=== PATIENT | female | born 1955 | race Caucasian/White ===

== ENCOUNTER 2019-10-01 09:08 | Day surgery (SDC) | payer OTHER, SELFPAY ==
[2019-09-30 14:18] VITALS: BMI 38.3
[2019-10-01] VITALS (15 sets, daily range): BP systolic 124–145; BP diastolic 59–75; PULSE 53–74; RESP 12–17; TEMP 36.3–37.1; O2SAT 92–98; BMI 38.3
--- NOTE | 2019-10-01 09:53 | SUR.PREOP ---
Placed pillow under LLE for comfort.
--- NOTE | 2019-10-01 10:53 | PM.PREOP ---
Pre-operative Note Interval Note History & Physical reviewed/Exam performed by Physician: Yes Changes to H&P: No
[2019-10-01] MEDS: ACETAMINOPHEN 325 MG TABLET 975 MG PO (10:56)
[2019-10-01] MEDS: GABAPENTIN 100 MG CAPSULE 200 MG PO (10:57)
[2019-10-01] MEDS: CEFAZOLIN 2 GM/100 ML FROZ.PIGGY IV (11:35)
--- NOTE | 2019-10-01 12:10 | SUR.OPER ---
Supine on padded OR bed, head on pillow, arms secured on padded arm boards at <90 degrees abduction, bump under left hip, left leg is under control of surgeon, safety belt at hips, tape over blanket over right lower leg.
[2019-10-01] MEDS: BUPIVACAINE 0.25% W/ EPI 30 ML VIAL INJ (12:22)
--- NOTE | 2019-10-01 13:39 | P.OP_ITS ---
Operative Date/Time/Diagnoses Date of procedure: 10/01/19 Time of procedure: 12:00 Pre-op diagnosis: Closed displaced fracture lateral malleolus left fibula [id number] Morbid obesity BMI 38.4 Obstructive sleep apnea Diabetes controlled on oral medications Post-op diagnosis: other (Closed displaced fracture lateral malleolus left fibula, disruption syndesmosis left ankle) Procedure & Clinicians Procedure: 1. Open reduction internal fixation left fibula CPT code 95961 2. ORIF left syndesmosis CPT code 28983 Same procedure as scheduled: Yes Indications: The patient is a 64-year-old female that fell walking her dog down a slippery slope 5 days prior. Patient sustained a displaced left closed ankle fracture. She was seen at [facility] and splinted. She was referred for orthopedic care. 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 She has a diagnosis of diabetes but last hemoglobin A1c was 6.5 and she is controlled on oral medications. She underwent bridging of her warfarin to Lovenox by her primary care. She was indicated for open reduction internal fixation of her unstable left ankle fracture with medial clear space widening. The risks benefits and alternatives to the surgical procedure including but not limited to infection, nonunion, malunion, posttraumatic arthritis, persistent pain, damage to nerves and vessels, bleeding, DVT, PE, amputation, need for additional procedures, painful hardware, stroke, paralysis, were discussed. Informed consent was signed. Plan would be bridge with Lovenox and patient will resume warfarin postoperatively Surgeon: Aneta Dee Click Yes if Unassisted: Yes Anesthesia Type: General, Peripheral nerve block and Local Operative Notes Findings: Displaced long oblique distal fibula fracture with separate wagstaffefracture fragment anteriorly and disruption of the syndesmosis. Fibula fracture was cleaned and reduced with a clamp and a anterior to posterior lag screw was placed followed by an anterior posterior lag screw through the posterior lateral plate. This reduced the large of fibula fracture. A 7 hole Arthrex 1/3 tubular plate was used with cortical screws proximally and 2 locking screws distally to decrease the profile. The syndesmosis was stressed and unstable therefore the thumb pressure and periarticular clamp were placed reducing the mortise and a tetra cortical 3.5 screw was placed for syndesmotic fixation. Additionally the small wagstaffe anterior fragment was fixed with 2 O Vicryl suture utilizing bone tunnels as this fragment was too small and thin to support screw fixation. After fixation these syndesmosis was stressed under fluoroscopic imaging and was stable. Closure Type: primary Specimen(s): none sent Prosthetic devices, grafts, tissues, transplants, or devices: Arthrex 7 hole 1/3 tubular plate and screws. 3.5 cortical screws proximally and for syndesmotic fixation. 2 x3.5 locking screws distally to reduce prominence at the lateral malleolus Applied: implant(s) (Arthrex see above) Estimated Blood Loss (mL): 10 Blood products transfused: none Tourniquet time (min): 60 Procedure in detail: In the preoperative holding area, the appropriate limb and sites were marked, consent was again reviewed with the patient and all questions answered. The patient was brought to the operating room, placed on the operating table and given anesthetic. Following successful levels of anesthesia, the patient was appropriately padded, position secured to the table. An SCD was placed on the contralateral leg. All bony prominences were well padded. A well- padded thigh tourniquet was placed. The surgical leg was then prepped and draped in the usual sterile fashion. A formal time-out procedure was completed confirming the patient, site and side of surgery and administration of appropriate preoperative antibiotics. All were in agreement. The patient received a postoperative regional block by the anesthesia team for postoperative pain control. An Esmarch bandage was utilized to exsanguinate the limb and the tourniquet was raised on the thigh to 250 mmHg-this remained elevated for 60 minutes and was let down during closing. Lateral incision was made over the posterior border of the fibula. Dissection was carried through the skin and subcutaneous tissue to the level of the fibula. The fracture was exposed and cleaned of debris. Fracture was a long oblique fracture through the syndesmosis which was disturbed. There is a small wagstaffe fracture as well. The tibiotalar joint was visualized and irrigated. No obvious osteochondral defect was visualized. Fracture was reduced, restoring length rotation and anatomic alignment. This was stabilized with 3.5 lag screw. Next a 1/3 tubular locking neutralization plate was placed and secured in standard fashion. Appropriate implant positioning was confirmed on intraoperative fluoro. Ankle was stressed under fluoroscopic imaging an external rotation and fibular manipulation. The syndesmosis was felt to be unstable. Syndesmosis stabilization: The syndesmosis was grossly disturbed based on visualization was further demonstrated on stress testing. Therefore the syndesmosis was formally opened and reduced and then stabilized with 1 tetra cortical 3.5 mm syndesmotic screws. This was restore S2 under live fluoroscopy with external rotation and the mortise was stable. Next attention was turned to fixing the Weck staff fragment. Due to the thin nature of this fracture fragment drill holes were made through the fibula using a K-wire and 2 O Vicryl suture was used for suture repaired tied over the lag staph fragment reapproximating the distal part of the syndesmosis. Stability was confirmed under fluoro. The wounds were irrigated. We were quite satisfied with result clinically and radiographically. The tourniquet was released, and hemostasis achieved. The deep tissue was closed with 2 O Vicryl. Subcutaneous tissue was closed with 2 O Vicryl and skin with 3 O nylon. A sterile bulky dressing and posterior and U splint were applied in neutral position. Bulky Antonio padding was utilized. All counts were correct. The patient was then awoken and transported to recovery room in good condition. There no known immediate complications from this procedure. Complications: none Post-operative Condition: stable Disposition: PACU Plan for aftercare: Patient will be nonweightbearing on the surgical leg. They will resume her standard warfarin for DVT prophylaxis on postop day 1. The patient will follow up in 2 weeks for wound check and change to a boot. They will follow At this time we will go into a boot start early range of motion will continue to be nonweightbearing. Follow-up in 4 weeks for repeat x-ray (at 6 weeks postop). Start weight-bearing progressively between 6 and 8 weeks.
[2019-10-01] MEDS: LACTATED RINGERS 1,000 ML 42 ML IV (13:50)
[2019-10-01] MEDS: OXYCODONE IR 5 MG TABLET PO ×2 (14:04→14:46)
[2019-10-01] MEDS: fentaNYL 100 MCG/2 ML INJ IV ×4 (14:08→14:35)
[2019-10-01] MEDS: KETOROLAC 30 MG/ML VIAL IV (15:16)
--- NOTE | 2019-10-01 15:25 | SUR.PHASEI ---
DR RUTLEDGE CALLED AND NTIFIED OF PTS CONTINUED PAIN 05/25.ORDER RECEIVED FOR IV TYLENOL AND TORADOL. AT PRESENT PT IS AWAKE AND DRINKING COFFEE, HAD JUICE AND APPLESAUCE, ON 2 L NC. LEFT LEG REMAINS ELEVATED AND ICE PACK BEHIND KNEE, TOES ARE PINK AND WARM WITH BRISK CAPILLARY REFILL, PT ABLE TO FEEL TOUCH ON TOES AND ABLE TO WIGGLE BIG TOE.
[2019-10-01] MEDS: ACETAMINOPHEN IV 1,000 MG/100 ML VIAL 400 MG IV (15:35)
== END 2019-10-01 17:00 | disposition home or self-care (01) ==
PROVIDERS: Visit Provider Orthopaedic Surgery Foot and Ankle Surgery
PROC: (CPT 27792; principal; 2019-10-01 11:15)
DX: S82.62XA Displaced fracture of lateral malleolus of left fibula, initial encounter for closed fracture (principal); S93.02XA Subluxation of left ankle joint, initial encounter; E66.01 Morbid (severe) obesity due to excess calories; G47.33 Obstructive sleep apnea (adult) (pediatric); E11.9 Type 2 diabetes mellitus without complications; Z79.84 Long term (current) use of oral hypoglycemic drugs; Z68.38 Body mass index [BMI] 38.0-38.9, adult; W01.0XXA Fall on same level from slipping, tripping and stumbling without subsequent striking against object, initial encounter; Y93.K1 Activity, walking an animal
CPT/HCPCS: 27792; 27829; J0131; J0690; J1885; J2250; J2405; J2704; J3010